=== PATIENT | male | born 1970 | race Two or more races ===

== ENCOUNTER 2025-05-01 12:26 | Outpatient (REF) | payer MEDICAID, SELFPAY ==
--- OUTSIDE RECORDS SUMMARY | 2025-05-01 13:44 | XMS_ITS | Clinical Summary ---
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 Name Role Phone Unavailable Primary Care Provider Unavailabl e Social History Tobacco Use Types Packs/Day Years Used Date Smoking Tobacco: Never Assessed Sex and Gender Information Value Date Recorded Sex Assigned at Not on file Legal Sex Male 4:50 AM EST Gender Identity Not on file Sexual Orientation Not on file Plan of Treatment Health Maintenance Due Date Last Done Comments Colorectal Cancer Screening: Colonoscopy 1968 DTaP,Tdap,and Td Vaccines (1 - Tdap) 1987 Hepatitis B Vaccines (1 of 3 - 19+ 3-dose series) 1987 Pneumococcal Vaccine: 50+ Ye ars (1 of 1 - PCV) 2018 Zoster Vaccines (1 of 2) 2018 Cholesterol Screening (Lipid Panel) 04/26/2024 HIV Screening 04/26/2024 Hepatitis C Screening 04/26/2024 Social Influencers of Health Screening 04/26/2024 Depression Screening 07/02/2024 COVID-19 Vaccine (1 - 2023-2 5 season) 2025 Influenza Vaccine (#1) 2025 RSV Immunization Adult Patie nts (1 - 1-dose 75+ series) 2043 HIB Vaccines Aged Out No longer eligi ble based on patient's age to complete this topic HPV Vaccines Aged Out No longer eligi ble based on patient's age to complete this topic Hepatitis A Vaccines Aged Out No long er eligible based on patient's age to complete this topic IPV Vaccines Aged Out No longer eligi ble based on patient's age to complete this topic MMR Vaccines Aged Out No longer eligi ble based on patient's age to complete this topic Meningococcal ACWY Vaccine Aged Out N o longer eligible based on patient's age to complete this topic Meningococcal B Vaccine Aged Out No l onger eligible based on patient's age to complete this topic RSV Immunization Patients Un naveen 20 months Aged Out No longer eligible b ased on patient's age to complete this topic Varicella Vaccines Aged Out No longer eligible based on patient's age to complete this topic
== END 2025-05-01 12:27 | disposition home or self-care (01) ==
LOC: CF 12:26
DX: Z13.89 Encounter for screening for other disorder (principal)